=== PATIENT | female | born 1940 | race Caucasian/White ===

== ENCOUNTER → 2021-04-30 15:45 | Outpatient (CLI) | payer MEDICARE, SELFPAY ==
--- NOTE | ~2021-04-30 | XR_ITS ---
EXAMINATION: XR knee LT min 4V DATE: 04/30/2021 17:18 INDICATION: Left knee injury post fall TECHNIQUE: Anteroposterior, 2 oblique and crosstable lateral views of the left knee were obtained COMPARISON: None. FINDINGS: Left total knee arthroplasty with patellar resurfacing. The tibial component is an approximately 6 de grees of valgus angulation. No periprosthetic lucency to suggest loosening or infection. Suture ancho r at the anterior tibial tubercle suggesting prior patellar tendon repair repositioning. No fracture. Moderate-sized enthesophyte at the proximal pole of the patella. Soft tissues are unremarkable. No l eft knee joint effusion. IMPRESSION: 1. Left total knee arthroplasty with no left knee joint effusion or acute osseous abnormality. Reviewed, dictated and finalized at location A. IMPRESSION: 1. Left total knee arthroplasty with no left knee joint effusion or acute osseo us abnormality.
--- NOTE | ~2021-04-30 | XR_ITS ---
EXAMINATION: XR hip BI 2V w AP pelvis DATE: 04/30/2021 17:18 INDICATION: Pelvic pain post fall 2 weeks prior. TECHNIQUE: Anteroposterior view of the pelvis and anteroposterior, frog leg and cross-table lateral v iews of the left hip and anteroposterior, frog leg and cross-table lateral views of the right hip and were obtained. COMPARISON: None. FINDINGS: Bone alignment is normal. No fracture. Mild bilateral hip osteoarthritis. Mild left-sided and moderat e right-sided sacroiliac osteoarthritis. Moderate lower lumbar spondylosis. Enthesophytes and entheso pathic consultation at the bilateral greater trochanters. IMPRESSION: 1. Mild to moderate degenerative skeletal changes in the pelvis and lower lumbar spine. No acute osse ous abnormality. Reviewed, dictated and finalized at location A. IMPRESSION: 1. Mild to moderate degenerative skeletal changes in the pelvis and lower lumba r spine. No acute osseous abnormality.
--- NOTE | ~2021-04-30 | XR_ITS ---
EXAMINATION: XR shoulder RT min 2V DATE: 04/30/2021 17:18 INDICATION: Right shoulder injury. TECHNIQUE: 4 views of right shoulder were obtained. COMPARISON: None. FINDINGS: Bone alignment is normal. No fracture. There is mild osteoarthritis of glenohumeral joint a nd severe osteoarthritis of acromioclavicular joint. IMPRESSION: 1. Polyarticular osteoarthritis. Reviewed, dictated and finalized at location A.
--- NOTE | ~2021-04-30 | XR_ITS ---
XR cervical spine 4-5V 04/30/2021 17:18 Indication: Neck pain after recent falls. Procedure: 4 view cervical spine Comparison: No prior studies for comparison. Findings: Vertebral body heights are maintained. No fracture, subluxation or dislocation. Lung apices are normal. There is multilevel facet and uncinate hypertrophy. There is mild disc narrowing at mult iple levels. No prevertebral soft tissue swelling. Odontoid process within normal limits. Impression: 1: Mild-moderate cervical spondylosis. Reviewed, dictated and finalized at location D. Impression: 1: Mild-moderate cervical spondylosis.
== END ==
PROVIDERS: PCP Physician Assistant; Visit Provider Physician Assistant
DX: M25.562 Pain in left knee (principal); M25.559 Pain in unspecified hip; M47.892 Other spondylosis, cervical region; M19.011 Primary osteoarthritis, right shoulder
CPT/HCPCS: 72050; 73030; 73521; 73564

== ENCOUNTER 2021-08-01 17:59 | Emergency (ER) | payer MEDICARE, SELFPAY ==
[2021-08-01 18:15] VITALS: BP 158/80; PULSE 93; RESP 16; TEMP 37.1; O2SAT 98
--- NOTE | 2021-08-01 19:03 | PC.NURSE ---
1845 PT'S WATCH REMOVED FROM HER LEFT ARM AND PLACED ON HER RIGHT ARM. BETADINE SOAK TO LEFT HAND WOUND.
--- NOTE | 2021-08-01 19:11 | ED.ANIMALBIT ---
HPI - Animal Bite General Chief Complaint: Animal Bite Stated Complaint: dog bite Time Seen by Provider: 08/01/21 18:40 Source: patient, family and RN notes reviewed Mode of arrival: ambulatory Limitations: no limitations History of Present Illness HPI narrative: 81 year old female who presents to [facility] with complaints of dog bite by family dog to her left dorsal hand which occurred at home shortly prior to arrival to clinic. Patient has extensive skin tear vs flap type of laceration to the top of her left hand with swelling and bruising noted to tissue. Patient has area around 3rd interspace of finger where muscle fascia/vs adipose tissue is noted. The wound is red and painful with no acute bleeding noted at this time. Patient is unsure of tetanus so tetanus will be updated. Patient is on daily Eliquis for A fib.Patient is able to move all finger on own power with no tingling or numbness to her left hand, brisk capillary refill of nail beds of left hand and strong left radial pulse noted. MD complaint: animal bite Related Data Home Medications Medication Instructions Recorded Confirmed apixaban [Eliquis] 5 mg PO BID 08/01/21 08/01/21 atorvastatin 10 mg PO DAILY 08/01/21 08/01/21 carvedilol 12.5 mg PO DAILY 08/01/21 08/01/21 diltiazem HCl [Cartia XT] 120 mg PO DAILY 08/01/21 08/01/21 duloxetine 60 mg PO DAILY 08/01/21 08/01/21 lisinopril 5 mg PO DAILY 08/01/21 08/01/21 omeprazole 40 mg PO DAILY 08/01/21 08/01/21 Allergies Allergy/AdvReac Type Severity Reaction Status Date / Time sulfamethoxazole Allergy Unknown Other Verified 08/01/21 18:21 trimethoprim Allergy Unknown Other Verified 08/01/21 18:21 Review of Systems Review of Systems: CONSTITUTIONAL: Denies fever, chills, or sweats. EYES: Denies visual changes, redness, or discharge. ENT: Denies rhinorrhea, congestion, sore throat, or otalgia. CARDIOVASCULAR: Denies chest pain, palpitations, or edema. RESPIRATORY: Denies cough or dyspnea. GASTROINTESTINAL: Denies abdominal pain, nausea, vomiting, or diarrhea. GENITOURINARY: Denies dysuria or hematuria. SKIN: Positive for flap type of wound to dorsal aspect of left hand, no acute bleeding at this time, swelling and extreme bruising to tissue dorsal left hand.. MUSCULOSKELETAL: Denies back pain, joint pain, or myalgia. NEUROLOGIC: Denies headache, numbness, or weakness. PSYCHIATRIC: Denies anxiety or depression. All systems reviewed & are unremarkable except as noted in HPI and below PMFSH Past Medical History Medical History (Updated 08/06/21 @ 21:17 by Soumya Valdez NP) Afib Arthritis Back pain Diverticulitis Hypertension Hypertension IBS (irritable bowel syndrome) On anticoagulant therapy Surgical History Surgical History (Updated 08/06/21 @ 20:48 by Soumya Valdez NP) History of hysterectomy Hx of cholecystectomy Total knee replacement status bilateral Social History Social History (Updated 08/06/21 @ 20:48 by Soumya Valdez NP) Smoking status: Never smoker Alcohol intake: current Alcohol use details: rare Substance use: never Living arrangements: with family Occupation/Education: retired Gender identity (if verbalized by the patient): Female Comments At time of signature, agree with nursing past medical, surgical, social and family history. There is no relevant family history pertinent to the presenting complaint Exam Narrative: GENERAL: Well-appearing, well-nourished, and in no acute distress. HEAD: Normocephalic, atraumatic. EYES: PERRLA and EOMI. ENT: Nares clear, no rhinorrhea or epistaxis. Mucous membranes moist. NECK: Supple. no lymphadenopathy CHEST: Clear to auscultation. No respiratory distress.SAO2 99% on room air HEART: Regular rate and rhythm. No murmur heard. Normal peripheral pulses. ABDOMEN: Soft, nontender, nondistended, normal active bowel sounds. EXTREMITIES: Normal range of motion. No edema. SKIN: Warm and dry. extensive laceration to dorsa
[2021-08-01 19:21] VITALS: BP 133/73; PULSE 85; RESP 16; TEMP 36.4; O2SAT 99
[2021-08-01] MEDS: TETANUS/DIPHTHERIA TOXOIDS ADSORB 0.5 ML VIAL (*BKC) IM (19:54)
== END 2021-08-01 20:18 | disposition home or self-care (01) ==
PROVIDERS: Emergency Provider Registered Nurse; PCP Physician Assistant
DX: S61.452A Open bite of left hand, initial encounter (principal); W54.0XXA Bitten by dog, initial encounter; Z23 Encounter for immunization; I10 Essential (primary) hypertension
CPT/HCPCS: 90471; 90714; 99213; G0463

== ENCOUNTER 2021-08-08 13:51 | Emergency (ER) | payer MEDICARE, SELFPAY ==
--- NOTE | ~2021-08-08 | XR_ITS ---
EXAMINATION: XR chest 1V portable INDICATION: Cough TECHNIQUE: Portable AP chest at 1441 hours COMPARISON: 07/02/2012 FINDINGS: There are minimal opacities of the lung bases. No pleural effusion or pneumothorax is ident ified. The cardiomediastinal silhouette is normal. There is an old healed fracture deformity of the l eft humerus. IMPRESSION: 1. Bibasilar airspace opacities, consistent with atelectasis versus pneumonia. Reviewed, dictated and finalized at location A.
[2021-08-08 15:03] VITALS: BP 127/83; PULSE 78; RESP 17; O2SAT 100
[2021-08-08 15:06] VITALS: PULSE 73
[2021-08-08 15:16] LABS: Basophils Percent Auto 0.6 % (0.2-1.2); Eosinophils Absolute Auto 0.2 K/mm3 (0-0.3); Eosinophils Percent Auto 3.1 % (0-4.4); Hematocrit 39.3 % (37.0-47.0); Hemoglobin 12.2 g/dL (12.0-15.0); Immature Granulocyte Absolute 0.01 K/mm3 (0.00-0.031); Immature Granulocyte Percent A 0.2 % (0-0.5); Lymphocytes Absolute Auto 1.26 K/mm3 (0.9-3.2); Lymphocytes Percent Auto 24.1 % (18.3-44.2); Mean Corpuscular Hemoglobin 27.5 pg (26-34); Mean Corpuscular Volume 88.7 fl (80-100); Mean Platelet Volume 10.4 fl (7.4-10.4); Monocytes Absolute Auto 0.5 K/mm3 (0.1-0.6); Monocytes Percent Auto 8.8 % (2.6-8.5); Neutrophils Absolute Auto 3.3 K/mm3 (1.3-6.7); Neutrophils Percent Auto 63.2 % (45.5-73.1); Platelet Count Result 294 k/mm3 (150-375); Red Blood Count 4.43 M/mm3 (4.2-5.4); White Blood Count 5.2 K/mm3 (4.5-10.0)
--- NOTE | 2021-08-08 15:22 | PC.NURSE ---
EKG done on downtime at patient arrival to the ED room 4
--- NOTE | 2021-08-08 15:31 | ED.GENADULT ---
HPI - General Adult General Chief complaint: Chest Pain History of Present Illness HPI narrative: Patient 81-year-old female presents the emergency department with chief complaint of chest pain. Patient reports that she started having discomfort in her chest today patient states that she started having a feeling as though she was becoming lightheaded felt dizzy and then started having discomfort in her chest. The patient reports she has history of atrial fibrillation reports she did not fall she was able to sit down reports that she is feeling somewhat better at this time denies shortness of breath denies diaphoresis. Related Data Home Medications Medication Instructions Recorded Confirmed apixaban [Eliquis] 5 mg PO BID 08/01/21 08/01/21 atorvastatin 10 mg PO DAILY 08/01/21 08/01/21 carvedilol 12.5 mg PO DAILY 08/01/21 08/01/21 diltiazem HCl [Cartia XT] 120 mg PO DAILY 08/01/21 08/01/21 duloxetine 60 mg PO DAILY 08/01/21 08/01/21 lisinopril 5 mg PO DAILY 08/01/21 08/01/21 omeprazole 40 mg PO DAILY 08/01/21 08/01/21 Allergies Allergy/AdvReac Type Severity Reaction Status Date / Time sulfamethoxazole Allergy Unknown Other Verified 08/01/21 18:21 trimethoprim Allergy Unknown Other Verified 08/01/21 18:21 Review of Systems Review of Systems: A 10 system review of systems was completed on the patient and is negative except for what is stated in the HPI. Nursing and ancillary documentation was reviewed. PMFSH Past Medical History Medical History Afib Arthritis Back pain Diverticulitis Hypertension Hypertension IBS (irritable bowel syndrome) On anticoagulant therapy Surgical History Surgical History History of hysterectomy Hx of cholecystectomy Total knee replacement status bilateral Social History Social History Smoking status: Never smoker Alcohol intake: current Alcohol use details: rare Substance use: never Gender identity (if verbalized by the patient): Female Exam Narrative: GENERAL: Well-appearing, well-nourished, and in no acute distress. HEAD: Normocephalic, atraumatic. EYES: PERRLA and EOMI. ENT: Nares clear, no rhinorrhea or epistaxis. Mucous membranes moist. NECK: Supple. CHEST: Clear to auscultation. No respiratory distress. HEART: Regular rate and rhythm. No murmur heard. Normal peripheral pulses. ABDOMEN: Soft, nontender, nondistended, normal active bowel sounds. EXTREMITIES: Normal range of motion. No edema. SKIN: Warm, dry, no rash. NEURO: No focal deficits. Alert and oriented x3. PSYCH: Normal mood and affect. Course Vital Signs Vital signs: Vital Signs Pulse Rate 78 08/08/21 15:03 Respiratory Rate 17 08/08/21 15:03 Blood Pressure 127/83 08/08/21 15:03 Pulse Oximetry 100 08/08/21 15:03 Pulse Rate 97 08/08/21 17:36 Respiratory Rate 18 08/08/21 17:36 Blood Pressure 188/95 H 08/08/21 17:36 Pulse Oximetry 100 08/08/21 17:36 Medical Decision Making Vital Signs Vital Signs: Vital Signs Pulse Rate 78 08/08/21 15:03 Respiratory Rate 17 08/08/21 15:03 Blood Pressure 127/83 08/08/21 15:03 Pulse Oximetry 100 08/08/21 15:03 Pulse Rate 97 08/08/21 17:36 Respiratory Rate 18 08/08/21 17:36 Blood Pressure 188/95 H 08/08/21 17:36 Pulse Oximetry 100 08/08/21 17:36 Lab Data Result diagrams: 08/08/21 14:46 08/08/21 14:46 Labs: Lab Results 08/08/21 08/08/21 08/08/21 Range/Units 14:46 14:46 14:46 WBC 5.2 (4.5-10.0) K/mm3 RBC 4.43 (4.2-5.4) M/mm3 Hgb 12.2 (12.0-15.0) g/dL Hct 39.3 (37.0-47.0) % MCV 88.7 (80-100) fl MCH 27.5 (26-34) pg MCHC 31.0 L (32-36) g/dl RDW 14.0 (11.5-14.5) % Plt Count 294 (150-375) k/mm3 MPV 10.4 (7.4-10.4) fl I
[2021-08-08 15:38] LABS: INR 1.1
[2021-08-08 15:41] LABS: Troponin I < 0.012 ng/mL (0.000-0.034)
[2021-08-08 15:50] VITALS: BP 172/103; PULSE 91; RESP 20; O2SAT 100
[2021-08-08] MEDS: ACETAMINOPHEN 500 MG TABLET 1000 MG PO (15:50)
[2021-08-08 16:22] LABS: Alanine Aminotransferase 15 U/L (4-35); Albumin Level 3.8 g/dL (3.5-5.1); Alkaline Phosphatase 81 U/L (38-126); Anion Gap 6 mmol/L (8-16); Aspartate Amino Transferase 28 U/L (14-36); Bilirubin,Total 0.5 mg/dL (0.2-1.3); Blood Urea Nitrogen 21 mg/dL (7-17); Calcium 9.5 mg/dL (8.4-10.2); Carbon Dioxide 27 mmol/L (22-30); Chloride 105 mmol/L (98-107); Estimated Glomerular Filt Rate 53; Glucose 104 mg/dL (65-110); Lipase 152 U/L (23-300); Potassium 4.3 mmol/L (3.4-5.0); Sodium 138 mmol/L (137-145)
--- NOTE | 2021-08-08 16:51 | ECG_ITS ---
Measurements Intervals [place] Rate: 97 P: [place]: 0 QRS: 5 QRSD: 94 T: 142 QT: 364 QTc: 463 Interpretive Statements ATRIAL FIBRILLATION ST-T WAVE ABNORMALITY IN ANTEROLAT/HIGH LAT LEADS BASELINE ARTIFACT- I, III, AVR, AVL, AVF ABNORMAL ECG Electronically Signed On 08-09-2021 7:50:02 CDT by Orestes Chand D.O.
[2021-08-08 17:09] VITALS: PULSE 85
[2021-08-08] MEDS: carvediloL 6.25 MG TABLET PO (17:09)
[2021-08-08] MEDS: lisinopriL 5 MG TABLET PO (17:09)
[2021-08-08 17:36] VITALS: BP 188/95; PULSE 97; RESP 18; O2SAT 100
[2021-08-08 18:24] LABS: Troponin I < 0.012 ng/mL (0.000-0.034)
[2021-08-08 19:15] VITALS: BP 170/92; PULSE 75; RESP 16; O2SAT 98
== END 2021-08-08 19:16 | disposition home or self-care (01) ==
PROVIDERS: Emergency Provider Emergency Medicine; PCP Physician Assistant
DX: R07.89 Other chest pain (principal); I48.91 Unspecified atrial fibrillation; M19.90 Unspecified osteoarthritis, unspecified site; I10 Essential (primary) hypertension; K58.9 Irritable bowel syndrome, unspecified; Z79.01 Long term (current) use of anticoagulants
CPT/HCPCS: 36415; 71045; 80053; 83690; 84484; 85025; 85610; 85730; 93005; 99283; A9270

== ENCOUNTER 2022-04-22 17:05 | Emergency (ER) | payer MEDICARE, SELFPAY ==
--- NOTE | ~2022-04-22 | XR_ITS ---
XR ankle RT min 3V 04/22/2022 17:20 Indication: Status post fall. Swelling. Procedure: 3 views of the right ankle Comparison: No prior studies for comparison. Findings: There is an oblique distal fibular fracture extending inferiorly to the level of the talar dome. There is approximately one third bone width lateral displacement. Moderate soft tissue swelling . Prominent degenerative calcaneal enthesophytes are present. There is polyarticular osteoarthritis. Impression: 1: Mildly displaced oblique distal fibular fracture. Reviewed, dictated and finalized at location A. Impression: 1: Mildly displaced oblique distal fibular fracture.
--- NOTE | ~2022-04-22 | XR_ITS ---
XR knee RT 3V 04/22/2022 17:21 Indication: Right knee pain Procedure: 3 views right knee Comparison: No prior studies for comparison. Findings: No fracture, subluxation or dislocation. No significant joint effusion. No foreign bodies. Right total knee arthroplasty well seated. Impression: 1: No acute fracture. Reviewed, dictated and finalized at location A. Impression: 1: No acute fracture.
[2022-04-22 17:02] VITALS: PULSE 85; RESP 17; TEMP 36.2; O2SAT 100
--- NOTE | 2022-04-22 17:22 | ED.LOWEXIN ---
HPI - Extremity Injury (Lower) General Chief Complaint: Extremity Injury, Lower Stated Complaint: R ankle deformity Time Seen by Provider: 04/22/22 17:10 History of Present Illness HPI Narrative: 81-year-old female presents the emergency room via EMS for evaluation of a right ankle and right knee pain following a mechanical fall. Patient states she tripped and fell when she was walking through her back door, inverting her ankle and subsequently landing on her knee. Patient states that she was not ambulatory following the injury. Noticed swelling to the right ankle. Patient has a history of her right knee replacement. Patient denies any syncope, lightheadedness or dizziness. Related Data Home Medications Medication Instructions Recorded Confirmed apixaban 5 mg tablet (Eliquis) 5 mg PO BID 08/01/21 08/01/21 atorvastatin 10 mg tablet 10 mg PO DAILY 08/01/21 08/01/21 carvedilol 12.5 mg tablet 12.5 mg PO DAILY 08/01/21 08/01/21 diltiazem HCl 120 mg 120 mg PO DAILY 08/01/21 08/01/21 capsule,extended release 24 hr (Cartia XT) duloxetine 60 mg capsule,delayed 60 mg PO DAILY 08/01/21 08/01/21 release lisinopril 5 mg tablet 5 mg PO DAILY 08/01/21 08/01/21 omeprazole 40 mg capsule,delayed 40 mg PO DAILY 08/01/21 08/01/21 release Allergies Allergy/AdvReac Type Severity Reaction Status Date / Time sulfamethoxazole Allergy Unknown Other Verified 04/22/22 17:09 trimethoprim Allergy Unknown Other Verified 04/22/22 17:09 Review of Systems Review of Systems: CONSTITUTIONAL: Denies fever, chills, or sweats. EYES: Denies visual changes, redness, or discharge. ENT: Denies rhinorrhea, congestion, sore throat, or otalgia. CARDIOVASCULAR: Denies chest pain, palpitations, or edema. RESPIRATORY: Denies cough or dyspnea. GASTROINTESTINAL: Denies abdominal pain, nausea, vomiting, or diarrhea. GENITOURINARY: Denies dysuria or hematuria. SKIN: Denies rash or itching. MUSCULOSKELETAL: Reports right ankle and right knee pain NEUROLOGIC: Denies headache, numbness, dizziness, or weakness. PSYCHIATRIC: Denies anxiety or depression. [facility] Past Medical History Medical History Afib Arthritis Back pain Diverticulitis Hypertension Hypertension IBS (irritable bowel syndrome) On anticoagulant therapy Surgical History Surgical History History of hysterectomy Hx of cholecystectomy Total knee replacement status bilateral Social History Social History Smoking status: Never smoker Alcohol intake: current Alcohol use details: rare Substance use: never Gender identity (if verbalized by the patient): Female Exam Narrative: GENERAL: Well-appearing, well-nourished, and in no acute distress. HEAD: Normocephalic, atraumatic. EYES: PERRLA and EOMI. CHEST: Clear to auscultation. No respiratory distress. No wheezes rales or rhonchi HEART: Regular rate and rhythm. No murmur heard. Normal peripheral pulses. ABDOMEN: Soft, nontender, nondistended, normal active bowel sounds. EXTREMITIES: Right ankle: Tenderness and soft tissue swelling to the lateral and medial malleolus, obvious bony abnormality to the distal fibula, neurovascular is intact distally; unable to evaluate for joint laxity due to pain SKIN: Warm, dry, no rash. NEURO: No focal deficits. Alert and oriented x3. PSYCH: Normal mood and affect. Course Vital Signs Vital signs: Vital Signs Temperature 36.2 C L 04/22/22 17:02 Pulse Rate 85 04/22/22 17:02 Respiratory Rate 17 04/22/22 17:02 Pulse Oximetry 100 04/22/22 17:02 Temperature 36.2 C L 04/22/22 17:02 Pulse Rate 85 04/22/22 17:02 Respiratory Rate 17 04/22/22 17:02 Pulse Oximetry 100 04/22/22 17:02 MDM - Extremity Injury (Lower) Imaging Data Radiologist's impression: Impressions Ankle X-Ray 04/22/22 17:23
[2022-04-22 17:59] VITALS: BP 144/86; PULSE 98; RESP 16; O2SAT 98
[2022-04-22] MEDS: MORPHINE SULFATE (*CRX) 4 MG/ML INJ IV PUSH (18:06)
== END 2022-04-22 18:37 | disposition home or self-care (01) ==
PROVIDERS: Emergency Provider Nurse Practitioner Family; PCP Physician Assistant
DX: S82.831A Other fracture of upper and lower end of right fibula, initial encounter for closed fracture (principal); I48.91 Unspecified atrial fibrillation; I10 Essential (primary) hypertension; K58.9 Irritable bowel syndrome, unspecified; M19.90 Unspecified osteoarthritis, unspecified site; Z79.01 Long term (current) use of anticoagulants; Z96.653 Presence of artificial knee joint, bilateral; W01.0XXA Fall on same level from slipping, tripping and stumbling without subsequent striking against object, initial encounter
CPT/HCPCS: 29515; 73562; 73610; 96374; 99284; J2270

== ENCOUNTER → 2023-05-19 16:19 | Outpatient (CLI) | payer MEDICARE, MEDICAID, SELFPAY ==
--- NOTE | ~2023-05-19 | XR_ITS ---
EXAMINATION: XR chest 2V DATE: 05/19/2023 16:40 INDICATION: Cough TECHNIQUE: PA and lateral views of the chest are obtained. COMPARISON: 08/08/2021 FINDINGS: The lungs are free of acute opacities. No pleural effusion or pneumothorax. The cardiomedia stinal silhouette is normal. There is moderate thoracic spondylosis. Surgical clips in the right uppe r quadrant are likely from prior cholecystectomy. IMPRESSION: 1. No acute cardiopulmonary abnormality. Reviewed, dictated and finalized at location []
== END ==
PROVIDERS: PCP Physician Assistant; Referring Provider Physician Assistant; Visit Provider Physician Assistant
DX: R05.1 Acute cough (principal)
CPT/HCPCS: 71046